=== PATIENT | male | born 1965 | race Two or more races ===

== ENCOUNTER 2017-04-07 08:45 | Emergency (ER) | payer SELFPAY ==
[~2017-04-07] VITALS: Ht 182.9 cm; Wt 90.7 kg
[2017-04-07] MEDS ORDERED: UNOBMED (08:48)
[2017-04-07 08:55] VITALS: BP 113/85
[2017-04-07] MEDS ORDERED: Tetanus/Diptheria/Pertussis Vaccine 0.5ml Syr IM ONE (09:00)
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
[2017-04-07 09:37] VITALS: BP 113/85
--- NOTE | 2017-04-08 09:19 | Diagnostic Imaging Report ---
Indication: Chest pain Comparison: None A single view chest radiograph was obtained. Findings: Cardiomediastinal appearance is within normal limits for age. Pulmonary vascularity is appropriate. The diaphragmatic contour is smooth and costophrenic angles are sharp. No pleural effusions are identified. The bones are unremarkable. Impression: No acute findings
== END 2017-04-07 09:39 ==
LOC: EMR 09:00
DX: S20.311A Abrasion of right front wall of thorax, initial encounter (principal); Y04.2XXA Assault by strike against or bumped into by another person, initial encounter; Y92.89 Other specified places as the place of occurrence of the external cause; I10 Essential (primary) hypertension; Z23 Encounter for immunization
CPT/HCPCS: 71010; 90471; 90715; 96372; 99283